=== PATIENT | female | born 1975 | race Caucasian/White ===

== ENCOUNTER → 2017-10-04 12:25 | Outpatient (CLI) | payer OTHER, SELFPAY | PROVIDERS: Family Provider Family Medicine; PCP Family Medicine; Visit Provider Obstetrics & Gynecology | DX: Z12.31 Encounter for screening mammogram for malignant neoplasm of breast (principal); N63.10 Unspecified lump in the right breast, unspecified quadrant | CPT/HCPCS: 77063; 77067 ==

== ENCOUNTER → 2017-10-06 13:56 | Outpatient (CLI) | payer OTHER, SELFPAY | LOC: OPUS 13:57 | PROVIDERS: Family Provider Family Medicine; PCP Family Medicine; Visit Provider Obstetrics & Gynecology | DX: R92.8 Other abnormal and inconclusive findings on diagnostic imaging of breast (principal) | CPT/HCPCS: 76642 ==

== ENCOUNTER → 2018-01-10 10:48 | Outpatient (CLI) | payer OTHER, SELFPAY ==
--- NOTE | 2018-01-10 10:51 | US_ITS ---
STUDY: ULTRASOUND BREAST - RIGHT REASON FOR EXAM: Female, 42 years old. History of drainage of a right breast cyst. TECHNIQUE: Axial and longitudinal images of the RIGHT breast were performed with a high resolution ultrasound transducer. COMPARISON: Comparison is made with prior mammogram dated October 04, 2017 and prior ultrasound the right breast dated October 06, 2017. FINDINGS: RIGHT Breast: Dense breast. The previously seen cyst at the 10:00 position of the breast at 6 cm from nipple presently measures 0.9 cm x 1.3 cm x 0.6 cm. A 1.1 cm x 1.2 cm x 1.0 cm cyst is seen at the 11:00 position of the breast at 8 cm from the nipple. US/Breast Limited Unilateral IMPRESSION: Interval decrease in size of the cyst at the 10:00 position in the breast or 6 cm from the nipple. ASSESSMENT CATEGORY: BIRADS Category 2: Benign. A letter regarding these results will be sent to the patient by the facility within 30 days. Electronically Signed: Gaston Fox MD at 12:58 EST Tel [phone], Service support ,
== END ==
PROVIDERS: Family Provider Family Medicine; PCP Family Medicine; Referring Provider Surgery; Visit Provider Surgery
DX: N60.01 Solitary cyst of right breast (principal)
CPT/HCPCS: 76642

== ENCOUNTER → 2018-01-26 07:24 | Outpatient (CLI) | payer OTHER, SELFPAY ==
--- NOTE | 2018-01-26 07:28 | US_ITS ---
STUDY: ULTRASOUND BREAST - RIGHT REASON FOR EXAM: Female, 42 years old. Ultrasound guided breast biopsy. TECHNIQUE: Axial and longitudinal images of the RIGHT breast were performed with a high resolution ultrasound transducer. COMPARISON: Comparison is made with prior ultrasound the right breast dated January 10, 2018. FINDINGS: RIGHT Breast: Under direct sonographic guidance, the surgeon performed a core biopsy of the anechoic nodule at 11:00 position of breast at 8 cm from nipple. US/US Breast Biopsy 1st Lesion IMPRESSION: Ultrasound guided biopsy as described. ASSESSMENT CATEGORY: BIRADS Category 4: Suspicious - Biopsy Should Be Considered. A letter regarding these results will be sent to the patient by the facility within 30 days. Electronically Signed: Gaston Fox MD at 11:59 EST Tel [phone], Service support ,
--- NOTE | 2018-01-26 08:35 | NURSING ---
biopsy discharge instructions reviewed with patient and paper given for reference. pt voiced understanding
--- NOTE | 2018-01-26 08:57 | OP.PCM_ITS ---
Problem List (1) Cyst of right breast Status: Acute Report of Operation Date of Procedure: 01/26/18 Pre-Operative Diagnosis: Right breast cyst Post-Operative Diagnosis: Same Surgery/Procedure Performed:: Ultrasound-guided right breast cyst aspiration and biopsy with mammotome with clip placement Description of Procedure: The patient was brought to the ultrasound suite and the right breast ultrasound was performed. The 1.2 cm cyst was localized in the 10 o'clock position. The skin lateral to this area was anesthetized with lidocaine and a small pily was made with 11 blade scalpel. Next a spinal needle was placed into the cyst under direct visualization with ultrasound but I was unable to aspirate any contents. Next an 18-gauge needle was placed into the cyst and I was also unable to aspirate any contents. At this point a 13-gauge mammotome was selected and the mammotome needle was able to be inserted into the cyst and once the biopsy channel was opened the cyst was fully aspirated. Several biopsies were taken of the segment. Next the mammotome needle was removed and a titanium clip was placed into this area. The needle was then removed and pressure was held. A S crystal-Strip was placed over the incision as well as a bandage. The patient tolerated the procedure well. Specimen was sent for pathology and for cytology.
--- NOTE | 2018-01-26 10:02 | FLU_PTH ---
PATIENT: MAX BALL LOC: [facility] U#:[id number] AGE/SX: 49/F ROOM: RE01/26/[address]: Dr. Cristian Bauer MD : 1975 BED: DIS: SPEC #: [id number] RECD: 01/26/18 10:02 STATUS: NADIA LUIS ALBERTO #: [id number] TRAE: 01/26/18 10:[address]: Cristian Bauer DEPT: CYTOLOGY RECD BY: Hardy Lugo ENTERED: 01/26/18 12:18 SP TYPE: Fluid OTHR DR: Dr. Kd Alex MD Tissues: Right breast, NOS Procedures: Pap Stain (control) Special Stain Group II Surgery Specimen Level IV Cell Block Cytospin Fluid HEADER OPERATION: Right breast aspiration and biopsy PRE-OP DIAGNOSIS: Cyst TISSUE SUBMITTED: Right breast ISCHEMIC TIME: 1 minute DIAGNOSIS CYTOLOGY Right breast, FNA (cytospin and cell block): Consistent with fibrocystic changes. See cytology study and comment. SJ:rg 01/27/18 COMMENT Correlation with clinical findings and appropriate follow up are necessary. CYTOLOGY STUDY Slides are reviewed. The specimen consists of benign ductal cells and macrophages. CYTOLOGY GROSS Received is 40 ml of cloudy milky fluid labeled with the patient's name and and designated per the requisition as right breast cyst. Submitted for cytology preparation including cell block. 01/26/18 TC:5 CPT: 75235, 73612
== END ==
LOC: OPUS 07:24
PROVIDERS: Family Provider Family Medicine; PCP Family Medicine; Referring Provider Surgery; Visit Provider Surgery
DX: N60.01 Solitary cyst of right breast (principal)
CPT/HCPCS: 19083; 88108; 88305; 88313

== ENCOUNTER → 2018-10-04 08:42 | Outpatient (CLI) | payer MEDICAID, SELFPAY ==
--- NOTE | 2018-10-04 08:46 | US_ITS ---
STUDY: THYROID ULTRASOUND REASON FOR EXAM: Female, 43 years old. Thyromegaly TECHNIQUE: Ultrasound evaluation of the thyroid was performed with real-time and static galan-scale imaging. COMPARISON: None. FINDINGS: RIGHT LOBE: The right lobe of the thyroid gland measures 4.3 x 1.4 x 1.2 cm. There is a homogeneous echotexture. A 6 x 5 x 4 mm cyst is present in the central right thyroid lobe. LEFT LOBE: The left lobe of the thyroid gland measures 4.2 x 1.3 x 1.2 cm. There is a homogeneous echotexture. A 3 x 3 x 1 mm cyst is present in the central left thyroid lobe. ISTHMUS: The isthmus measures 3 mm . The regional lymph nodes are normal. US/Thyroid IMPRESSION: Small bilateral thyroid cysts. No suspicious solid nodules are seen. The thyroid is normal in size. Electronically Signed: Patrick Marc MD at 12:04 EDT Tel , Service support ,
--- NOTE | 2018-10-04 08:47 | BI_ITS ---
MAMMOGRAPHY - BILATERAL DIAGNOSTIC REASON FOR EXAM: Female, 43 years old. Increased density in the left lower outer quadrant. Prior ultrasound-guided breast biopsy. PERTINENT HISTORY: Grandmother with breast cancer. TECHNIQUE: Digital bilateral breast elias (3D mammographic acquisition) in the CC and MLO projections. 2-D mediolateral oblique (MLO) and craniocaudad (CC) views of both breasts were obtained. CAD: Full Field Digital Mammography with Computer Added Detection was performed. COMPARISON: Comparison is made with prior study dated October 04, 2017 and September 28, 2016. FINDINGS: Breast Composition: The breasts are heterogeneously dense, which may obscure small masses. There are no dominant masses or suspicious calcifications. Stable appearance of the nodular density seen in both breasts. A tissue clip marker is seen in the deep upper lateral aspect of the right breast. A similar appearing tissue clip marker is seen in the slightly upper lateral anterior aspect of the right breast as well. These are new as compared to prior examination. No other significant abnormalities are identified. There has been no significant change since the prior study. BI/DIAG MAMM W/CAD, BILAT IMPRESSION: Stable bilateral diagnostic mammogram. With the patient's history, correlation with ultrasound is recommended. ASSESSMENT CATEGORY: BIRADS Category 0: Incomplete. Need additional imaging evaluation. A letter regarding these results will be sent to the patient by the facility within 30 days. Approximately 10% of breast cancers are not detected by mammography. A normal mammogram should not delay biopsy of a clinically suspicious abnormality. Electronically Signed: Gaston Fox, at 12:51 EDT , Service support ,
[2018-10-04 09:38] LABS: Hematocrit 44.8 % (37-47); Hemoglobin 15.1 g/dL (12.0-15.0); Mean Corp Hgb Conc 33.7 g/dL (32-36); Mean Corpuscular Hgb 28.5 pg (27.0-32.0); Mean Corpuscular Volume 84.5 fL (81-99); Mean Platelet Vol. 9.6 fl (6.2-12.0); Platelet Count 253 K/mm3 (150-450); RBC Distribution Width CV 12.5 % (11.6-14.6); RBC Distribution Width SD 38.2 fl (35.1-43.9); White Blood Count 5.2 K/mm3 (4.4-11.0)
[2018-10-04 09:55] LABS: Hemoglobin A1c 5.7 % (4.2-6.3)
[2018-10-04 10:04] LABS: ALB/GLOB Ratio 0.9 RATIO (0.9-2.4); AST(SGOT) 20 U/L (15-37); Alanine Aminotransfer ALT/SGPT 33 U/L (13-56); Albumin, Serum 3.5 g/dL (3.2-5.0); Alkaline Phosphatase 96 U/L (45-117); Anion Gap 9 (5-15); BUN 13 mg/dL (7-18); BUN/Creat Ratio 13.2 RATIO (10-20); Chloride 104 mmol/L (98-107); Cholesterol 260 mg/dL (200); Creatinine, Serum 0.98 mg/dL (0.55-1.02); EST Glomerular Filtration Rate 65 mL/min (>60); Est Glom Filt Rate - Afr Amer 79 mL/min (>60); Free T3 2.9 pg/mL (2.18-3.98); Globulin 3.8 g/dL (2.2-4.2); Glucose 111 mg/dL (74-106); High Density Lipoprotein 40 mg/dL; Potassium 4.1 mmol/L (3.5-5.1); Protein, Total 7.3 g/dL (6.4-8.2); Sodium Level 141 mmol/L (136-145); T4 Free Direct 0.92 ng/dL (0.76-1.46); Thyroid Stim Hormone (TSH) 3.98 uIU/mL (0.358-3.74); Triglycerides 313 mg/dL; Very Low Density Lipoprotein 63 mg/dL (5-40)
[2018-10-04 10:25] LABS: Homocysteine 10.7 umol/L (3.2-10.7)
--- NOTE | 2018-10-04 10:29 | US_ITS ---
STUDY: ULTRASOUND BREAST - RIGHT REASON FOR EXAM: Female, 43 years old. History of a breast cyst. TECHNIQUE: Axial and longitudinal images of the RIGHT breast were performed with a high resolution ultrasound transducer. COMPARISON: Comparison is made with prior mammograms and earlier today. Comparison is also made with prior sonogram of the right breast dated January 10, 2018. FINDINGS: RIGHT Breast: Stable 4 mm x 4 mm x 4 mm cyst at the 9:00 position of the breast at 9 cm from the nipple. IMPRESSION: 4 mm x 4 mm x 4 mm cyst is seen at the 9:00 position of the breast at 9 cm from the nipple. ASSESSMENT CATEGORY: BIRADS Category 2: Benign. A letter regarding these results will be sent to the patient by the facility within 30 days. Electronically Signed: Gaston Dominique, at 12:53 EDT , Service support , STUDY: ULTRASOUND BREAST - LEFT REASON FOR EXAM: Female, 43 years old. Fullness of the left breast. TECHNIQUE: Axial and longitudinal images of the LEFT breast were performed with a high resolution ultrasound transducer. COMPARISON: Comparison is made with prior mammogram done earlier in the day. FINDINGS: LEFT Breast: The inferior outer quadrant of the left breast was examined by ultrasound. Multiple cysts are seen. The largest measures 1.5 cm x 1.4 cm x 1 cm. This is at the 3:00 position of the breast at 9 cm from the nipple. US/Breast Limited Unilateral IMPRESSION: Multiple breast cysts. ASSESSMENT CATEGORY: BIRADS Category 2: Benign. A letter regarding these results will be sent to the patient by the facility within 30 days. Electronically Signed: Gaston Fox, at 12:54 EDT , Service support ,
== END ==
PROVIDERS: Referring Provider Obstetrics & Gynecology; Visit Provider Obstetrics & Gynecology
DX: E07.9 Disorder of thyroid, unspecified (principal); N64.4 Mastodynia; E78.2 Mixed hyperlipidemia; R03.0 Elevated blood-pressure reading, without diagnosis of hypertension; Z13.1 Encounter for screening for diabetes mellitus; Z68.34 Body mass index [BMI] 34.0-34.9, adult; R73.09 Other abnormal glucose
CPT/HCPCS: 36415; 76536; 76642; 77062; 77066; 80053; 80061; 83036; 83090; 84439; 84443; 84481; 85027; G0279

== ENCOUNTER → 2018-11-07 11:43 | Outpatient (CLI) | payer MEDICAID, SELFPAY ==
[2018-10-18 09:28] VITALS: BMI 35.3
--- NOTE | 2018-11-07 11:45 | US_ITS ---
STUDY: ULTRASOUND BREAST - cyst aspiration. REASON FOR EXAM: Female, 43 years old. Small cyst at the 3:00 position of breast at 9 cm from nipple. TECHNIQUE: Axial and longitudinal images of the left breast were performed with a high resolution ultrasound transducer. COMPARISON: Comparison is made with prior examination in October 04, 2018. FINDINGS: Left Breast: Under direct sonographic guidance, the surgeon aspirated a small cyst. 3 cc of sky color fluid was aspirated. US/US Breast Biopsy 1st Lesion IMPRESSION: Successful ultrasound-guided aspiration of the small cyst at the 3:00 position in the breast. ASSESSMENT CATEGORY: BIRADS Category 2: Benign. A letter regarding these results will be sent to the patient by the facility within 30 days. Electronically Signed: Gaston Fox, at 13:15 EDT , Service support ,
== END ==
PROVIDERS: Family Provider Physician Assistant Medical; PCP Physician Assistant Medical; Referring Provider Surgery; Visit Provider Surgery
DX: N60.02 Solitary cyst of left breast (principal)
CPT/HCPCS: 19083

== ENCOUNTER → 2020-01-16 12:28 | Outpatient (CLI) | payer MEDICAID, SELFPAY ==
[2018-10-18 09:28] VITALS: BMI 35.3
--- NOTE | 2020-01-16 12:30 | BI_ITS ---
MAMMOGRAPHY - BILATERAL SCREENING REASON FOR EXAM: Female, 44 years old. Routine annual screening examination. PERTINENT HISTORY: Grandmother with breast cancer. TECHNIQUE: Digital bilateral breast jose (3D mammographic acquisition) in the CC and MLO projections. 2-D mediolateral oblique (MLO) and craniocaudad (CC) views of both breasts were obtained. CAD: Full Field Digital Mammography with Computer Added Detection was performed. COMPARISON: Comparison is made with prior study dated 09/26/2018 and 10/04/2017. FINDINGS: Breast Composition: The breasts are extremely dense, which lowers the sensitivity of mammography. There are no dominant masses or suspicious calcifications. Stable appearance of the nodular densities seen in both breasts. Once again, a tissue clip marker is seen in the upper lateral aspect of the right breast. A similar appearing tissue clip marker is seen in the slightly upper lateral anterior aspect of the right breast as well. No other significant abnormalities are identified. There has been no significant change since the prior study. BI/SCREEN MAMM (CAD) W/JOSE BILAT IMPRESSION: Stable bilateral screening mammogram. Yearly follow-up mammogram recommended. (A) ASSESSMENT CATEGORY: BIRADS Category 2: Benign. A letter regarding these results will be sent to the patient by the facility within 30 days. Approximately 10% of breast cancers are not detected by mammography. A normal mammogram should not delay biopsy of a clinically suspicious abnormality. [id number] Electronically Signed: Gaston Fox, at 14:38 EST , Service support ,
[2020-01-21 17:07] LABS: HPV APTIMA, High Risk Negative (Negative)
== END ==
PROVIDERS: PCP Physician Assistant Medical; Referring Provider Obstetrics & Gynecology; Visit Provider Obstetrics & Gynecology
DX: Z12.31 Encounter for screening mammogram for malignant neoplasm of breast (principal); Z12.4 Encounter for screening for malignant neoplasm of cervix
CPT/HCPCS: 77063; 77067; 87624; 88175; G0145

== ENCOUNTER 2020-09-15 16:46 | Emergency (ER) | payer MEDICAID, SELFPAY ==
[2018-10-18 09:28] VITALS: BMI 35.3
[2020-09-15 16:47] VITALS: BP 157/87; PULSE 73; RESP 16; TEMP 36.8; O2SAT 100; BMI 33.4
--- NOTE | 2020-09-15 16:50 | RAD_ITS ---
STUDY: X-RAY - RIGHT ANKLE REASON FOR EXAM: Female, 45 years old. injury TECHNIQUE: 3 view(s) of the ankle. COMPARISON: None. FINDINGS: An acute oblique fracture of the undersurface of the lateral malleolus is present minimal displacement. Mild to moderate soft tissue swelling is present around the ankle joint. A small anterior ankle joint effusion is also visualized. Mild enthesopathy at the Achilles tendon insertion site noted. An acute transverse fracture is also present through the proximal shaft of the fifth metatarsal bone without displacement. Normal visualized distal tibia. Normal medial malleolus. Normal tibiotalar articulation and ankle mortise. Normal visualized talus and calcaneus. The visualized subtalar, talonavicular, calcaneocuboid and tarsal articulations are normal. RAD/Ankle min 3 Views IMPRESSION: 1. Acute fracture of the lateral malleolus 2. Acute transverse fracture of the proximal shaft of the fifth metatarsal bone. Electronically Signed: Monty Benitez MD at 18:20 EDT , Service support ,
--- NOTE | 2020-09-15 18:34 | EDS_ITS ---
HPI History of Present Illness Chief Complaint: Lower Extremity Injury Informant: patient Occured/Mechanism Mechanism/Context: Yes injury Onset/Context/Timing Onset: Today Context: Sudden Onset Timing: Continuous Quality of Pain: Sharp Current Severity: Moderate Maximum Severity: Severe Narrative Narrative: 45-year-old female was walking down steps missed the last 2 steps fell injuring her right ankle and foot. Said the pain was so severe she blacked out. She denies any other injuries. She is never broken his ankle or foot before. Prior similar symptoms: No Recent Illness/Hospitalization: No PFSH PFSH Medical History (Updated 09/15/20 @ 19:[address] Sung Parra MD) Breast cyst Chronic abdominal pain Chronic bronchitis History of hyperlipidemia History of varicose veins Leiomyoma of body of uterus Home Medications ibuprofen 800 mg PO TID PRN PRN #40 tab 01/30/16 [Rx Last Taken Unknown] hydrocodone-acetaminophen 1 tab PO Q4H PRN 5 Days #20 tab 09/15/20 [Rx Last Taken Unknown] Allergy/AdvReac Type Severity Reaction Status Date / Time oxycodone [From OxyContin] Allergy Severe throat Verified 09/15/20 16:47 swelling, sob latex Allergy BLISTERS Verified 09/15/20 16:47 Family History Grandmother Breast cancer Grandfather Diabetes Surgical History history of cyst aspiration History of hysterectomy History of LEEP (loop electrosurgical excision procedure) of cervix complicating History of right breast biopsy Social History Smoking Status: Never smoker ROS ROS ED ROS Narrative Denies recent illness. Review of Systems ROS Unobtainable: Denies due to encephalopathy Constitutional Constitutional ED: Denies fever(s) Eyes Eyes: Denies change in vision ENT ENT ED: Denies ear pain or sore throat Cardiovascular Cardiovascular: Denies chest pain Respiratory/Chest Respiratory/Chest: Denies cough or dyspnea Gastrointestinal Gastrointestinal: Denies abdominal pain, diarrhea, nausea or vomiting Genitourinary Genitourinary ED: Denies dysuria Musculoskeletal Musculoskeletal: Denies myalgias Integumentary Denies rash Neurologic Neurologic: Denies headache(s) Psychiatric Psychiatric: Denies depression Endocrine Endocrinology: Denies polyuria Hematologic/Lymphatic Hematologic/Lymphatic: Denies easy bruising Allergic/Immunologic Allergic/Immunologic ED: Denies urticaria EXAM Physical Exam Narrative Exam Narrative: Middle-aged female no acute distress vital signs stable afebrile. HEENT exam unremarkable atraumatic. C-spine nontender. Trachea midline. Lungs are clear. Heart regular rhythm. Abdomen soft nontender normal bowel sounds no peritoneal signs. Back nontender. Chest were nontender. Pelvic girdle intact. Both upper extremities nontender normal range of motion normal maths tutor strength. Left lower extremity nontender. Right hip and knee nontender. Right ankle lateral malleolus tender and swollen. Significantly swollen. Achilles tendon intact. Medial malleolus nontender. Proximal foot mild tenderness. Able to wiggle her toes. Normal touch sensation and cap refill. Neurologically she is awake and alert with no focal motor deficits. Const Vital Signs: 09/15/20 16:47 Temperature 98.3 F Temperature Source Temporal Pulse Rate 73 Respiratory Rate 16 Blood Pressure 157/87 H Blood Pressure Mean 110 Pulse Ox 100 Oxygen Delivery Method Room Air Positive well nourished and well developed; Negative for unkempt General Appearance ED: well developed and NAD; Negative for unkempt HEENT Reports moist mucous membranes normocephalic and atraumatic; Negative for trauma or tenderness Eyes PERRL Neck full ROM and supple Thyroid: Negative for tender Chest Wall inspection of chest normal and palpation of chest normal Resp normal respiratory effort, no retractions and clear to auscultation bilaterally Auscultation: Negative for rales, rhonchi or wheezes Cardio regular rate, regular rhythm, S1 normal heart sound, S2 normal heart sound and no murmurs GI non-tender, non-distended and no masses Auscultation: normoactive bowel sounds Palpation: soft; Negative for tender or guarding Back/Spine no CVA tenderness Cervical Spine: Negative for cervical spine tenderness Thoracic Spine / Upper Back: Negative for thoracic spinal tenderness Lumbar Spine / Lower Back: Negative for lumbar spinal tenderness Extremity normal to inspection Extremity Narrative: Except right lateral malleolus tenderness and swelling. Also proximal foot tenderness. Neuro oriented x3 and moves all extremities Sensorium / Orientation: alert, oriented to person, oriented to place and oriented to time; Negative for confused, lethargic or stuporous Motor Exam: strength 5/5 throughout Psych mental status grossly normal Appearance: Negative for unkempt Skin no wounds Lesions: no lesions Rashes: no rashes MDM MDM MDM Narrative Medical decision making narrative: 45-year-old female missed the last 2 steps fell injuring her right ankle and foot. X-ray right ankle shows a distal [place] a fibula fracture. Also concern for a proximal fifth metatarsal fracture so foot x-ray is also being obtained. She will be given 2 Raton for pain. Patient has a distal fibula [place] a fracture and also 1/5 metatarsal nondisplaced fracture. She will be discharged home with crutches posterior splint nonweightbearing and follow-up with either associate field service engineer or orthopedic physician of her choice. Radiography Diagnostic Testing: Right ankle x-ray 3 views signs a distal fibular fracture. [place] a. Right foot x-ray 3 views interpreted by myself also shows a proximal fifth met atarsal nondisplaced fracture. Both films were interpreted by myself. Procedures Lower Extremity Splints Lower Extremity Splint: Orthoglass Splint Fabrication: Fabricated Location: Right Discharge Plan Triage Chief Complaint: Lower Extremity Injury ED Provider: Sung Parra Dx/Rx/DC Orders Clinical Impression: Ankle fracture, Closed fracture of fifth metatarsal bone, Fall Instructions: Fifth Metatarsal Fx, ED Ankle Fracture Prescriptions: New hydrocodone-acetaminophen 5-325 mg tablet 1 tab PO Q4H PRN (Reason: pain) 5 Days Qty: 20 RF: 0 No Action ibuprofen 800 MG tablet 800 mg PO TID PRN PRN (Reason: Pain) Qty: 40 RF: 0 Primary Care Provider: Grace Perera Referrals: James Pradhan MD [STAFF PHYSICIAN] - As soon as possible Grace Perera PA [Primary Care Provider] - Activity Restrictions/Additional Instructions: Ice and elevate right foot and ankle you have both a right ankle fracture and 1/5 metatarsal fracture of your little toe. Ice and elevate. Motrin and Raton for pain. No weightbearing. Follow-up with either Dr. Hung Pradhan of orthopedics or associate field service engineer of your choice. Disposition Disposition: Home, Self Care
--- NOTE | 2020-09-15 18:35 | RAD_ITS ---
STUDY: X-RAY - RIGHT FOOT CLINICAL: Female, 45 years old. pain and trauma TECHNIQUE: 3 view(s) of the foot. COMPARISON: Right ankle x-ray on the same day FINDINGS: Acute horizontal/transverse fracture across the proximal shaft of the fifth metatarsal bone is present without displacement. No additional acute fractures are seen. The adjacent soft tissues are mildly swollen. Normal talus, calcaneus, and tarsal bones. Normal visualized subtalar, talonavicular, calcaneocuboid, tarsal and tarsometatarsal articulations. Normal remaining metatarsi. Normal metatarsophalangeal joint of the great toe. Normal tibial and fibular sesamoid bones. Normal interphalangeal joint of the great toe. Normal phalanges of the great toe. Normal second through fifth metatarsophalangeal joints. Normal interphalangeal joints and phalanges of the lesser toes. RAD/Foot min 3 Views IMPRESSION: 1. Acute transverse fracture through the proximal shaft of the fifth metatarsal bone Electronically Signed: Monty Benitez MD at 19:34 EDT , Service support ,
[2020-09-15] MEDS: HYDROcodone Bitartrate/Apap 5/325 Tablet PO (18:50)
[2020-09-15 19:59] VITALS: BP 130/89; PULSE 79; RESP 16; TEMP 36.7; O2SAT 97
[2020-09-15 20:02] VITALS: RESP 16
== END 2020-09-15 20:44 | disposition home or self-care (01) ==
PROVIDERS: Emergency Provider Emergency Medicine; PCP Physician Assistant Medical
DX: S92.351A Displaced fracture of fifth metatarsal bone, right foot, initial encounter for closed fracture (principal); W10.9XXA Fall (on) (from) unspecified stairs and steps, initial encounter
CPT/HCPCS: 29515; 73610; 73630; 99284

== ENCOUNTER → 2020-12-17 14:01 | Outpatient (CLI) | payer MEDICAID, SELFPAY ==
[2020-12-17 15:13] LABS: Vitamin D,25 Hydroxy 26.9 ng/mL
== END ==
PROVIDERS: PCP Physician Assistant Medical; Referring Provider Podiatrist; Visit Provider Podiatrist
DX: E55.9 Vitamin D deficiency, unspecified (principal); S92.353A Displaced fracture of fifth metatarsal bone, unspecified foot, initial encounter for closed fracture
CPT/HCPCS: 36415; 82306

== ENCOUNTER → 2021-01-15 15:02 | Outpatient (CLI) | payer MEDICAID, SELFPAY ==
--- NOTE | 2021-01-15 15:04 | BI_ITS ---
MAMMOGRAPHY - BILATERAL SCREENING REASON FOR EXAM: Female, 45 years old. Routine annual screening examination. PERTINENT HISTORY: Grandmother with breast cancer. Prior ultrasound-guided biopsy in the right breast. TECHNIQUE: Digital bilateral breast jose (3D mammographic acquisition) in the CC and MLO projections. 2-D mediolateral oblique (MLO) and craniocaudad (CC) views of both breasts were obtained. CAD: Full Field Digital Mammography with Computer Added Detection was performed. COMPARISON: Comparison is made with prior examination dated 01/16/2020 and 10/04/2018. FINDINGS: Breast Composition: The breasts are extremely dense, which lowers the sensitivity of mammography. There is a 1.8 cm x 1.4 cm well-defined nodule in the upper lateral portion of the right breast. Correlation with ultrasound is recommended. A tissue clip marker is seen in the upper lateral aspect of the right breast. No other significant abnormalities are identified. BI/SCRN MAMM (CAD)W/JOSE BILAT IMPRESSION: 1.8+1.4 cm well-defined nodule in the upper lateral portion of the right breast. Correlation with ultrasound is recommended. ASSESSMENT CATEGORY: BIRADS Category 0: Incomplete. Need additional imaging evaluation. A letter regarding these results will be sent to the patient by the facility within 30 days. Approximately 10% of breast cancers are not detected by mammography. A normal mammogram should not delay biopsy of a clinically suspicious abnormality. [id number] Electronically Signed: Gaston Fox MD at 15:49 EST , Service support ,
== END ==
PROVIDERS: PCP Physician Assistant Medical; Referring Provider Obstetrics & Gynecology; Visit Provider Obstetrics & Gynecology
DX: Z12.31 Encounter for screening mammogram for malignant neoplasm of breast (principal)
CPT/HCPCS: 77063; 77067

== ENCOUNTER → 2021-01-21 10:53 | Outpatient (CLI) | payer MEDICAID, SELFPAY ==
--- NOTE | 2021-01-21 10:54 | US_ITS ---
STUDY: ULTRASOUND BREAST - RIGHT REASON FOR EXAM: Female, 45 years old. Abnormal screening mammogram. TECHNIQUE: Axial and longitudinal images of the RIGHT breast were performed with a high resolution ultrasound transducer. # OF IMAGES: [id number] COMPARISON: Comparison is made with prior mammogram dated 01/15/2021. FINDINGS: RIGHT Breast: The mammographic abnormality corresponds to a 2 cm x 2.4 cm x 1 cm cyst at the 9 o''clock position of the breast at 8 cm from nipple. Adjacent to this, there is a 1.4 cm x 1.5 cm x 0.8 cm cyst. A septated cyst measuring 1.6 cm x 1.6 x 0.8 cm is seen at the 9 o''clock position breast at 10 cm from nipple. Incidental note is made of a 3.2 cm x 3.5 cm x 1.6 cm lymph node in the axillary region. A fatty hilum is seen within the US/Breast Limited Unilateral IMPRESSION: 3 cysts are seen in the upper outer quadrant of the right breast. This also evidence of a 3.2 cm x 3.5 cm x 1.6 cm lymph node in the right axillary region. ASSESSMENT CATEGORY: BIRADS Category 2: Benign. A letter regarding these results will be sent to the patient by the facility within 30 days. Electronically Signed: Gaston Fox MD at 12:34 EST , Service support ,
== END ==
PROVIDERS: PCP Physician Assistant Medical; Visit Provider Obstetrics & Gynecology
DX: N63.10 Unspecified lump in the right breast, unspecified quadrant (principal)
CPT/HCPCS: 76642

== ENCOUNTER 2021-04-15 11:42 | Outpatient (CLI) | payer MEDICAID, SELFPAY ==
[2021-04-15 12:36] LABS: Vitamin D,25 Hydroxy 33.9 ng/mL
== END 2021-04-15 23:59 | disposition home or self-care (01) ==
LOC: LAB 11:44
PROVIDERS: PCP Physician Assistant Medical; Referring Provider Podiatrist; Visit Provider Podiatrist
DX: E55.9 Vitamin D deficiency, unspecified (principal)
CPT/HCPCS: 36415; 82306

== ENCOUNTER → 2021-10-09 | Outpatient (CLI) | payer MEDICAID, SELFPAY ==
--- NOTE | 2021-10-09 08:59 | BI_ITS ---
MAMMOGRAPHY - BILATERAL DIAGNOSTIC REASON FOR EXAM: Female, 46 years old. Palpable lump in the upper lateral aspect of the right breast. PERTINENT HISTORY: Grandmother with breast cancer. History of bilateral breast cysts. Prior right ultrasound guided breast biopsies. TECHNIQUE: Digital bilateral breast elias (3D mammographic acquisition) in the CC and MLO projections. 2-D mediolateral oblique (MLO) and craniocaudad (CC) views of both breasts were obtained. CAD: Full Field Digital Mammography with Computer Added Detection was performed. COMPARISON: Comparison is made with prior study dated 01/15/2021 and 01/16/2020. FINDINGS: Breast Composition: The breasts are extremely dense, which lowers the sensitivity of mammography. Persistent nodular densities in both breasts more prominent on the left side. Persistent 2 cm x 2 cm nodule in the upper-outer quadrant of the right breast most likely representing the palpable lump. A tissue clip marker is seen in the upper lateral aspect of the right breast. No other significant abnormalities are identified. There has been no significant change since the prior study. BI/DIAG MAMM W/CAD, BILAT IMPRESSION: Stable bilateral diagnostic mammogram. Correlation with ultrasound of the palpable lump in the right breast is recommended. ASSESSMENT CATEGORY: BIRADS Category 0: Incomplete. Need additional imaging evaluation. A letter regarding these results will be sent to the patient by the facility within 30 days. Approximately 10% of breast cancers are not detected by mammography. A normal mammogram should not delay biopsy of a clinically suspicious abnormality. Electronically Signed: Gaston Fox MD at 10:47 EDT ,
--- NOTE | 2021-10-09 08:59 | US_ITS ---
STUDY: ULTRASOUND BREAST - RIGHT REASON FOR EXAM: Female, 46 years old. Right breast lump. TECHNIQUE: Axial and longitudinal images of the RIGHT breast were performed with a high resolution ultrasound transducer. # OF IMAGES: 11 COMPARISON: Comparison is made with prior mammogram done earlier in the day. Comparison is also made with prior sonogram of the right breast dated 01/21/2021. FINDINGS: RIGHT Breast: The upper quadrant of the right breast was examined with ultrasound. The palpable area about the corresponds to a 1.5 cm x 1.5 cm x 0.9 cm cyst at the 9 o''clock position of the breast at 10 cm from nipple. US/Breast Limited Unilateral IMPRESSION: The mammographic abnormality corresponds to a 1.5 cm x 1.5 cm x 0.9 cm cyst at the 9 o''clock position of the breast at 10 cm from nipple. ASSESSMENT CATEGORY: BIRADS Category 2: Benign. A letter regarding these results will be sent to the patient by the facility within 30 days. Electronically Signed: Gaston Fox MD at 12:23 EDT ,
== END | disposition home or self-care (01) ==
LOC: OPBI 08:58
PROVIDERS: PCP Physician Assistant Medical; Visit Provider Obstetrics & Gynecology
DX: N63.0 Unspecified lump in unspecified breast (principal)
CPT/HCPCS: 77062; 76642; 77066; G0279

== ENCOUNTER → 2023-01-24 | Outpatient (CLI) | payer MEDICAID, SELFPAY ==
--- NOTE | 2023-01-24 14:36 | BI_ITS ---
MAMMOGRAPHY - BILATERAL SCREENING REASON FOR EXAM: Female, 47 years old. Routine annual screening examination. PERTINENT HISTORY: Grandmother with breast cancer. History of prior left breast aspiration and ultrasound-guided right breast biopsy. TECHNIQUE: Digital bilateral breast jose (3D mammographic acquisition) in the CC and MLO projections. 2-D mediolateral oblique (MLO) and craniocaudad (CC) views of both breasts were obtained. CAD: Full Field Digital Mammography with Computer Added Detection was performed. COMPARISON: Comparison is made with prior study to October 09, 2021 and January 15, 2021. FINDINGS: Breast Composition: The breasts are extremely dense, which lowers the sensitivity of mammography. Stable 2 cm x 2 cm nodule in the upper outer quadrant of the right breast. A tissue clip marker is seen within. Interstitial markings also seen within the small bowel nodular density in the central anterior lateral aspect of the right breast. There is a 8.1 mm x 8.7 mm well-defined nodule in the central lateral portion of the left breast. Correlation with ultrasound is recommended. No other significant abnormalities are identified. BI/SCRN MAMM (CAD)W/JOSE BILAT IMPRESSION: 8.1 mm x 8.7 mm well-defined nodule in the central lateral portion of the left breast. Correlation with ultrasound is recommended. Stable appearance of the right breast nodules. ASSESSMENT CATEGORY: BIRADS Category 0: Incomplete. Need additional imaging evaluation. A letter regarding these results will be sent to the patient by the facility within 30 days. Approximately 10% of breast cancers are not detected by mammography. A normal mammogram should not delay biopsy of a clinically suspicious abnormality. [id number] Electronically Signed: Gaston Fox MD at 8:43 EST ,
== END | disposition home or self-care (01) ==
LOC: OPBI 14:35
PROVIDERS: PCP Physician Assistant Medical; Referring Provider Physician Assistant Medical; Visit Provider Physician Assistant Medical
DX: Z12.31 Encounter for screening mammogram for malignant neoplasm of breast (principal)
CPT/HCPCS: 77063; 77067

== ENCOUNTER → 2023-02-01 | Outpatient (CLI) | payer MEDICAID, SELFPAY ==
--- NOTE | 2023-02-01 15:00 | US_ITS ---
STUDY: ULTRASOUND BREAST - LEFT REASON FOR EXAM: Female, 47 years old. History of breast cysts. Abnormal mammogram in the past. History of right breast biopsy. TECHNIQUE: Axial and longitudinal images of the LEFT breast were performed with a high resolution ultrasound transducer. # OF IMAGES: 26 COMPARISON: Bilateral mammogram dated January 24, 2023, right breast ultrasound dated October 09, 2021 and bilateral mammogram dated October 09, 2021 FINDINGS: LEFT Breast: Heterogeneously dense fibroglandular tissue. 1 cm x 11 mm x 5 mm ovoid anechoic mass at the 2:00 to 3:00 position of the breast 3 cm from the nipple compatible with simple cyst. No suspicious masses identified. US/Breast Limited Unilateral IMPRESSION: Simple cyst at the 2:00 to 3:00 position of the right breast 3 cm from the nipple. Follow-up screening mammogram in January 2024 recommended. ASSESSMENT CATEGORY: BIRADS Category 2: Benign. A letter regarding these results will be sent to the patient by the facility within 30 days. Electronically Signed: Ian Coffman MD at 15:45 EST ,
== END | disposition home or self-care (01) ==
LOC: OPUS 14:59
PROVIDERS: PCP Physician Assistant Medical; Referring Provider Physician Assistant Medical; Visit Provider Physician Assistant Medical
DX: R92.8 Other abnormal and inconclusive findings on diagnostic imaging of breast (principal)
CPT/HCPCS: 76642